=== PATIENT | male | born 1995 | race African-American/Black ===

== ENCOUNTER 2017-08-12 17:05 | Emergency (ER) | payer OTHER, SELFPAY ==
[~2017-08-12] VITALS: Ht 182.9 cm; Wt 79.5 kg
[2017-08-12 17:06] VITALS: BP 125/67
== END 2017-08-12 19:40 | disposition left against medical advice (07) ==
LOC: M ED 17:05
DX: Z53.21 Procedure and treatment not carried out due to patient leaving prior to being seen by health care provider (principal)